=== PATIENT | female | born 1990 | race African-American/Black ===

== ENCOUNTER 2021-07-03 20:44 | Emergency (ER) ==
[2021-07-03] MEDS ORDERED: Lidocaine 1% PF 5 ML VIAL ONE (21:07)
[2021-07-03] MEDS ORDERED: Bupivacaine 0.5% 10 ML VIAL ONE (21:07)
== END 2021-07-03 22:15 | disposition home or self-care (01) ==
LOC: ERS 20:44
DX: L03.012 Cellulitis of left finger (principal); F17.210 Nicotine dependence, cigarettes, uncomplicated
CPT/HCPCS: 26010; J3490

== ENCOUNTER 2023-03-11 21:10 | Emergency (ER) | payer OTHER ==
[2023-03-11] MEDS ORDERED: Meclizine HCl 25 MG TAB ONE (21:50)
[2023-03-11] MEDS ORDERED: Ketorolac Tromethamine 30 MG/ML VIAL ONE (21:50)
[2023-03-11 22:44] LABS: #Eosinphils 0.1 thou/uL (0.0-0.7); #Monocytes 0.3 thou/uL (0.11-0.59); #Neutrophils 7.6 thou/uL (1.40-6.50); %Basophils 0.2 % (0.0-1.0); %Eosinophils 0.5 % (0.0-10.0); %Monocytes 3.1 % (0.0-10.0); Hematocrit 36.1 % (36.0-47.0); Hemoglobin 11.7 g/dL (12.0-16.0); Mean Corpuscular HGB CONC 32.4 g/dL (32.0-36.0); Mean Corpuscular Hemoglobin 26.1 pg (27.0-31.0); Mean Corpuscular Volume 80.4 fl (78.0-98.0); Mean Platelet Volume 8.4 fL (7.4-10.4); Platelet Count 366 10x3/uL (130-400); Red Blood Cell (RBC) Count 4.49 mill/uL (4.20-5.40); White Blood Cell (WBC) Count 9.4 10x3/uL (4.8-10.8)
[2023-03-11 23:09] LABS: ALT (SGPT) 14 U/L (8-55); AST (SGOT) 16 U/L (5-34); Albumin 4.3 g/dL (3.5-5.0); Alkaline Phosphatase 65 U/L (40-110); Anion Gap 12 mmol/L (10-20); BUN (Urea Nitrogen) 10 mg/dL (7.0-18.7); Bilirubin, Total 0.3 mg/dL (0.2-1.2); Calc. Creatinine Clearance 0 mL/min (70-130); Carbon Dioxide 22 mmol/L (22-29); Chloride 106 mmol/L (98-107); Estimated GFR 109; Globulin 3.5 g/dL (2.4-3.5); Glucose 103 mg/dL (70-105); Potassium 3.9 mmol/L (3.5-5.1); Protein, Total 7.8 g/dL (6.0-8.3); Sodium 136 mmol/L (136-145)
[2023-03-11 23:13] LABS: Troponin I Less than 0.010 ng/mL (< 0.028)
== END 2023-03-11 23:43 ==
LOC: ERS 21:10
DX: R07.89 Other chest pain (principal); I10 Essential (primary) hypertension; F17.210 Nicotine dependence, cigarettes, uncomplicated
CPT/HCPCS: 36415; 71045; 80053; 84484; 85025; 93005; 96372; J1885

== ENCOUNTER 2023-03-29 15:10 | Emergency (ER) | payer OTHER ==
[2023-03-29] MEDS ORDERED: Cyclobenzaprine 10 MG TAB ONE (15:52)
[2023-03-29] MEDS ORDERED: Ketorolac Tromethamine 30 MG/ML VIAL ONE (15:52)
[2023-03-29] MEDS ORDERED: Dexamethasone 4 MG TAB ONE (15:52)
== END 2023-03-29 16:28 | disposition home or self-care (01) ==
LOC: ERS 15:10
DX: J03.90 Acute tonsillitis, unspecified (principal); M62.830 Muscle spasm of back; I10 Essential (primary) hypertension; F17.210 Nicotine dependence, cigarettes, uncomplicated
CPT/HCPCS: 87081; 87430; 96372; 99284; J1885; J8540

== ENCOUNTER 2023-04-16 21:51 | Emergency (ER) | payer OTHER ==
[2023-04-16] MEDS ORDERED: HYDROcodone/Acetaminophen 10/325 mg Tablet ONE (22:55)
== END 2023-04-16 22:57 | disposition home or self-care (01) ==
LOC: ERS 21:51
DX: S62.396A Other fracture of fifth metacarpal bone, right hand, initial encounter for closed fracture (principal); I10 Essential (primary) hypertension; J45.909 Unspecified asthma, uncomplicated; F17.210 Nicotine dependence, cigarettes, uncomplicated; W22.8XXA Striking against or struck by other objects, initial encounter
CPT/HCPCS: 29125

== ENCOUNTER 2023-05-09 05:18 | Emergency (ER) | payer OTHER ==
[2023-05-09] MEDS ORDERED: Acetaminophen 500 MG TAB ONE (06:04)
[2023-05-09] MEDS ORDERED: Ibuprofen 200 MG TAB ONE (06:05)
== END 2023-05-09 06:46 | disposition home or self-care (01) ==
LOC: ERS 05:18
DX: S62.316A Displaced fracture of base of fifth metacarpal bone, right hand, initial encounter for closed fracture (principal); I10 Essential (primary) hypertension; F17.210 Nicotine dependence, cigarettes, uncomplicated; W10.9XXA Fall (on) (from) unspecified stairs and steps, initial encounter
CPT/HCPCS: 29125

== ENCOUNTER 2023-11-06 21:50 | Emergency (ER) | payer OTHER ==
[2023-11-06] MEDS ORDERED: diphenhydrAMINE 50 MG/ML VIAL ONE (23:21)
[2023-11-06] MEDS ORDERED: LORazepam 2 MG/ML SYR.(CARPUJECT) ONE (23:22)
[2023-11-06] MEDS ORDERED: methylPREDNISolone Sod Succ/PF 125 MG/2 ML VIAL ONE (23:22)
[2023-11-07 00:59] LABS: #Basophils Less than 0.03 10x3/uL (0.0-0.2); %Basophils 0.1 % (0.0-1.0); %Eosinophils 0.5 % (0.0-10.0); %Lymphocytes 11.8 % (21.0-51.0); %Monocytes 4.8 % (0.0-10.0); %Neutrophils 82.5 % (42.0-75.0); Hematocrit 34.4 % (36.0-47.0); Hemoglobin 11.3 g/dL (12.0-16.0); Mean Corpuscular HGB CONC 32.8 g/dL (32.0-36.0); Mean Corpuscular Hemoglobin 26.7 pg (27.0-31.0); Mean Corpuscular Volume 81.3 fL (78.0-98.0); Mean Platelet Volume 8.5 fL (7.4-10.4); Platelet Count 365 10x3/uL (130-400); RBC Distribution Width 15.8 % (11.5-14.5); Red Blood Cell (RBC) Count 4.23 mill/uL (4.20-5.40)
[2023-11-07 01:20] LABS: BHCG - Serum Negative (NEGATIVE); Pregs Control Background? CLEAR/WHITE (CLR/WHITE); Pregs Control Bar Appear? YES (CONTROL BAR)
[2023-11-07 01:22] LABS: ALT (SGPT) 8 U/L (8-55); AST (SGOT) 17 U/L (5-34); Acetaminophen Less than 10 mcg/mL (10.0-30.0); Albumin 3.3 g/dL (3.5-5.0); Alcohol Less than 10.0 mg/dL (Less than 10); Alkaline Phosphatase 66 U/L (40-110); Anion Gap 13 mmol/L (10-20); BUN (Urea Nitrogen) 11 mg/dL (7.0-18.7); Bilirubin, Total 0.3 mg/dL (0.2-1.2); CK (CPK) 134 U/L (29-168); Calc. Creatinine Clearance 0 mL/min (70-130); Calcium 8.9 mg/dL (7.8-10.44); Carbon Dioxide 21 mmol/L (22-29); Chloride 107 mmol/L (98-107); Estimated GFR 91; Globulin 3.6 g/dL (2.4-3.5); Glucose 111 mg/dL (70-105); Protein, Total 6.9 g/dL (6.0-8.3); Salicylate Less than 8.0 mg/dL (15.0-30.0); Sodium 138 mmol/L (136-145)
[2023-11-07 01:26] LABS: Troponin I 0.011 ng/mL (< 0.028)
== END 2023-11-07 02:00 | disposition home or self-care (01) ==
LOC: ERS 21:50
DX: L29.9 Pruritus, unspecified (principal); L50.9 Urticaria, unspecified; I10 Essential (primary) hypertension; F17.210 Nicotine dependence, cigarettes, uncomplicated
CPT/HCPCS: 70450; 71045; 80053; 80307; 82550; 84443; 84484; 84703; 85025; 93005; 96374; 96375; J1200; J2060; J2930

== ENCOUNTER 2023-11-13 22:11 | Emergency (ER) | payer OTHER | END 2023-11-13 23:30 | disposition left against medical advice (07) | LOC: ERS 22:11 | DX: Z53.21 Procedure and treatment not carried out due to patient leaving prior to being seen by health care provider (principal) ==

== ENCOUNTER 2023-11-17 14:19 | Emergency (ER) | payer OTHER ==
[2023-11-17] MEDS ORDERED: Acetaminophen 325 MG TAB ONE (16:38)
[2023-11-17] MEDS ORDERED: Ibuprofen 200 MG TAB ONE (16:38)
[2023-11-17] MEDS ORDERED: Ketorolac Tromethamine 30 MG (1 mL) VIAL ONE (17:33)
== END 2023-11-17 17:47 | disposition home or self-care (01) ==
LOC: ERS 14:19
DX: G89.29 Other chronic pain (principal); M79.605 Pain in left leg; I10 Essential (primary) hypertension; F17.210 Nicotine dependence, cigarettes, uncomplicated
CPT/HCPCS: 96372; J1885

== ENCOUNTER 2024-05-29 05:57 | Emergency (ER) | payer OTHER ==
[2024-05-29] MEDS ORDERED: Ketorolac Tromethamine 30 MG (1 mL) VIAL ONE (06:33)
[2024-05-29] MEDS ORDERED: diphenhydrAMINE 50 MG/ML VIAL ONE (06:33)
[2024-05-29] MEDS ORDERED: methylPREDNISolone Sod Succ/PF 125 MG/2 ML VIAL ONE (06:33)
[2024-05-29] MEDS ORDERED: Famotidine/PF 20 mg/2ml Vial ONE (06:34)
== END 2024-05-29 08:15 | disposition home or self-care (01) ==
LOC: ERS 05:57
DX: T78.40XA Allergy, unspecified, initial encounter (principal); F17.210 Nicotine dependence, cigarettes, uncomplicated; I10 Essential (primary) hypertension; J45.909 Unspecified asthma, uncomplicated; Z72.89 Other problems related to lifestyle; Z79.51 Long term (current) use of inhaled steroids; Z79.899 Other long term (current) drug therapy
CPT/HCPCS: 96374; 96375; J1200; J1885; J2919; J3490